=== PATIENT | female | born 1950 | race Caucasian/White ===

== ENCOUNTER → 2016-10-22 | Outpatient (CLI) | payer BC ==
[~2016-10-22] MED LIST: AMLODIPINE BESYL5 MG PO; DITROPAN XL15 MG PO; FLONASE 50 MCG/16 GM NOSE; NEXIUM40 MG PO; NORCO 5-325 MG1 TAB PO; TOPROL XL 5050 MG PO; ULTRAM50 MG PO; VITAMIN D1000 UNIT PO
== END | disposition disaster alternative care site (69) ==
LOC: GRAD 15:09
DX: M54.17 Radiculopathy, lumbosacral region (principal); Z98.890 Other specified postprocedural states
CPT/HCPCS: A9577